=== PATIENT | female | born 1980 | race Caucasian/White ===

== ENCOUNTER → 2018-07-20 14:01 | Outpatient (CLI) | payer SELFPAY ==
[2018-07-20 15:49] LABS: Color, Urine Yellow (Yellow); Glucose, Dipstick Normal (Normal); Ketone-Dipstick 5 mg/dl (Negative); Leukocyte Esterase-Dipstick 25 /ul (Negative); Nitrite-Dipstick Negative (Negative); Occult Blood-Urine Negative /ul (Negative); Protein-Dipstick Negative (Negative); Specific Gravity, Urine 1.015 (1.002-1.030); Urine Bilirubin Dipstick Negative (Negative); Urine Clarity Clear (Clear); Urine Urobilinogen Normal (Normal); Urine pH 6.5 (5.0 - 8.0)
[2018-07-20 15:58] LABS: Absolute Lymphocyte Count 1.39 X10^3/ul (0.83-4.51); Absolute Neutrophil Count 4.1 X10^3/uL (2.0-7.7); Basophil# 0.03 X10^3/uL; Basophil% 0.5 % (0-1); Eosinophil# 0.22 X10^3/uL; Eosinophils% 3.6 % (0-5); Hematocrit 36.2 % (37-47); Hemoglobin 12.2 g/dl (12.0-15.0); Lymphocyte # 1.39 X10^3/ul (4.0); Lymphocyte % 22.9 % (19-41); Mean Corp Hgb Conc 33.7 g/gl (32-36); Mean Corpuscular Hgb 29.4 pg (27.0-32.0); Mean Corpuscular Volume 87.2 fL (81-99); Mean Platelet Vol. 10.1 fl (6.2-12.0); Monocyte# 0.36 X10^3/uL; Monocyte% 5.9 % (0-10); Neutrophil # 4.06 X10^3/uL (2.7-7.7); Neutrophil % 66.8 % (47-70); Platelet Count 202 K/mm3 (150-450); RBC Distribution Width CV 13.4 % (11.6-14.6); Red Blood Count 4.15 M/mm3 (4.2-5.4); White Blood Count 6.1 K/mm3 (4.4-11.0)
[2018-07-20 16:13] LABS: Thyroid Stim Hormone (TSH) 2.47 uIU/mL (0.358-3.74)
[2018-07-20 16:17] LABS: POSITIVE COUNT NO; POSITIVE DIFFERENTIAL NO; POSITIVE MORPHOLOGY NO
[2018-07-20 16:54] LABS: HIV - WCH Non-Reactive (Nonreactive); Rubella IgG > 500.0 IU/mL
[2018-07-20 18:58] LABS: Chlamydia Trachomatis by PCR Negative (Negative); Neisserai gonorrhoeae by PCR Negative (Negative); Probe Check PASS; Sample Adequacy Control PASS; Specimen Processing Control PASS
[2018-07-21 23:53] LABS: Prenatal RPR NONREACTIVE (NONREACTIVE)
[2018-07-22 12:49] LABS: HEPATITIS B SURFACE AG Negative (Negative); Hep C Antibodies <0.1 s/co ratio (0.0-0.9)
[2018-07-27 11:54] LABS: HPV Reflexed? NOT INDICATED
== END ==
PROVIDERS: Referring Provider Obstetrics & Gynecology; Visit Provider Obstetrics & Gynecology
DX: Z34.82 Encounter for supervision of other normal pregnancy, second trimester (principal); Z11.3 Encounter for screening for infections with a predominantly sexual mode of transmission; Z12.4 Encounter for screening for malignant neoplasm of cervix
CPT/HCPCS: 36415; 81002; 84443; 85025; 86703; 86762; 86803; 87340; 87491; 87591; 87624; 88175; G0145

== ENCOUNTER → 2019-12-06 | Outpatient (CLI) | payer OTHER, SELFPAY ==
[2019-12-06 11:37] LABS: Chlamydia Trachomatis by PCR Negative (Negative); Neisserai gonorrhoeae by PCR Negative (Negative); Probe Check PASS; Sample Adequacy Control PASS; Specimen Processing Control PASS
== END | disposition home or self-care (01) ==
LOC: LABSPEC 08:42
PROVIDERS: Referring Provider Obstetrics & Gynecology; Visit Provider Obstetrics & Gynecology
DX: Z11.3 Encounter for screening for infections with a predominantly sexual mode of transmission (principal)
CPT/HCPCS: 87491; 87591

== ENCOUNTER 2020-05-21 05:00 | Inpatient (IN) | payer SELFPAY ==
[2020-05-21] VITALS (19 sets, daily range): BP systolic 89–113; BP diastolic 44–83; PULSE 69–99; RESP 14–18; TEMP 36.4–37.3; O2SAT 96–100; BMI 30.7
[2020-05-21] MEDS: Lactated Ringers 1,000 ML 999 ML IV (05:20)
[2020-05-21 05:37] LABS: Absolute Lymphocyte Count 1.16 X10^3/uL (0.83-4.51); Absolute Neutrophil Count 5.9 X10^3/uL (2.0-7.7); Basophil# 0.02 X10^3/uL; Basophil% 0.3 % (0-1); Eosinophil# 0.09 X10^3/uL; Eosinophils% 1.2 % (0-5); Hematocrit 35.8 % (37-47); Hemoglobin 11.9 g/dL (12.0-15.0); Lymphocyte # 1.16 X10^3/ul (4.0); Lymphocyte % 14.8 % (19-41); Mean Corp Hgb Conc 33.2 g/dL (32-36); Mean Corpuscular Hgb 30.2 pg (27.0-32.0); Mean Corpuscular Volume 90.9 fL (81-99); Mean Platelet Vol. 10.4 fl (6.2-12.0); Monocyte# 0.62 X10^3/uL; Monocyte% 7.9 % (0-10); NRBC Flagged by Analyzer 0 % (0-5); Neutrophil # 5.87 X10^3/uL (2.7-7.7); Platelet Count 185 K/mm3 (150-450); RBC Distribution Width CV 13.4 % (11.6-14.6); Red Blood Count 3.94 M/mm3 (4.2-5.4); White Blood Count 7.8 K/mm3 (4.4-11.0)
[2020-05-21] MEDS: Lactated Ringers 1,000 ML 500 ML IV (06:22)
[2020-05-21] MEDS: Acetaminophen 500 MG Tablet 1000 MG PO ×4 (06:29→23:55)
--- NOTE | 2020-05-21 06:41 | PCM.HPOB.BLA ---
History and Physical Date of Admission: 05/21/20 CC: Repeat section HPI: 40 yo at 39/1w, ALEXANDRO 05/27/20 by 15w US, admitted for repeat section. Denies LOF, VB, contractions. +FM. Denies DAVILA, vision changes, chest pain, dyspnea, nausea/emesis. complicated by: advanced maternal age, history of myomectomy. PRIOR DELIVERY HISTORY DEL DATE GEST LAB WT LB WT OZ TYPE ANES LABOR TX 01 Jul 17 8 0 0 0 Sab None No Oct 16 13 0 0 0 Sab General No Jan 18 39 0 8 8 P C/S Epidural No ALLERGIES: No Known Drug Allergies MEDICATIONS: 28 mg iron-800 mcg tablet daily SOCIAL HISTORY: Smoking - Never Alcohol Use - None Illicit Drug Use - denies use of street drugs Family History: Noncontributory Medical History: none Surgical history: section, myomectomy, D&C Labs: HIV: negative Hepatitis B/C: negative/negative RPR: nonreactive Blood type: A neg Rubella immune GC/CT negative COVID negative REVIEW OF SYSTEMS: GENERAL - Denies fever, or chills SKIN - Denies rash, new skin lesions, or change in moles EYES - Denies blurred vision, or change in visual acuity EARS - Denies ear pain, or difficulty hearing NOSE - Denies nasal congestion, discharge, or bleeding MOUTH - Denies sore throat, or difficulty swallowing NECK - Denies pain or swelling RESPIRATORY - Denies shortness of breath, cough, wheezing CARDIOVASCULAR - Denies palpitations, chest pain, orthopnea, PND, peripheral edema, syncope or claudication GASTROINTESTINAL - Denies nausea, vomiting, diarrhea, constipation, Denies abdominal pain, melena and or bright red blood GENITOURINARY - Denies dysuria, frequency of urination, urgency, or hesitancy MUSCULOSKELETAL - Denies joint or muscle pain, or back pain NEUROLOGICAL - Denies localized numbness, weakness, or tingling PSYCHIATRIC - Denies depression, anxiety, substance abuse or suicide attempts ENDOCRINE - Denies heat or cold intolerance, weight loss or gain, increasing thirst HEMATO-IMMUNOLOGIC - Denies easy bruising, bleeding, oral ulcerations or recurrent infections OBJECTIVE: Vital Signs Temp Pulse Resp BP Pulse Ox 05/21/20 06:18 98.2 F 96 18 113/73 96 GENERAL: NAD HEENT: NC/AT HEART: RRR, no M/R/G LUNGS: CTAB ABDOMEN: soft, NT, gravid EXT: No edema MSK: full ROM, 5/5 muscle strength FHR: 136 [place]: quiet LABS: Laboratory Last Values WBC 7.8 K/mm3 (4.4-11.0) 05/21/20 05:20 RBC 3.94 M/mm3 (4.2-5.4) L 05/21/20 05:20 Hgb 11.9 g/dL (12.0-15.0) L 05/21/20 05:20 Hct 35.8 % (37-47) L 05/21/20 05:20 MCV 90.9 fL (81-99) 05/21/20 05:20 MCH 30.2 pg (27.0-32.0) 05/21/20 05:20 MCHC 33.2 g/dL (32-36) 05/21/20 05:20 RDW Std Deviation 44.0 fl (35.1-43.9) H 05/21/20 05:20 RDW Coeff of Rosalinda 13.4 % (11.6-14.6) 05/21/20 05:20 Plt Count 185 K/mm3 (150-450) 05/21/20 05:20 MPV 10.4 fl (6.2-12.0) 05/21/20 05:20 Immature Gran % (Auto) 0.800 % (0.0-0.9) 05/21/20 05:20 Neut % (Auto) 75.0 % (47-70) H 05/21/20 05:20 Lymph % (Auto) 14.8 % (19-41) L 05/21/20 05:20 [place] % (Auto) 7.9 % (0-10) 05/21/20 05:20 Eos % (Auto) 1.2 % (0-5) 05/21/20 05:20 Baso % (Auto) 0.3 % (0-1) 05/21/20 05:20 Absolute Neuts (auto) 5.9 X10^3/uL (2.0-7.7) 05/21/20 05:20 Absolute Lymphs (auto) 1.16 X10^3/uL (0.83-4.51) 05/21/20 05:20 Nucleated RBC % 0 % (0-5) 05/21/20 05:20 A/P: 40 yo at 39/1w, ALEXANDRO 05/27/20 by 15w US, admitted for repeat section. Complicated by: history of fibroids with myomectomy and advanced maternal age, fetus with echogenic focus on anatomy US. -Admit to L&D -Preop labs stable -2g Ancef preop
[2020-05-21] MEDS: Sodium Citrate/Citric Acid 30 ML UDC PO (06:52)
[2020-05-21] MEDS: Cefazolin 2 GM in 0.9% Normal Saline 100 ML IV (06:53)
--- NOTE | 2020-05-21 08:16 | PCM.OPRPT ---
Delivery Classification: Scheduled Final ALEXANDRO: 05/27/20 Final ALEXANDRO Source: US <20 weeks Gestational age: 39 Weeks and 1 Days Type of Anesthesia:: Spinal Date of Procedure: 05/21/20 Pre-Operative Diagnosis: Repeat section, Klein intrauterine 39/1w, History of myomectomy Post-Operative Diagnosis: Repeat section, Klein intrauterine 39/1w, History of myomectomy Indications: 40-year-old G4, P1 at 39 weeks and 1 day admitted for repeat section. Patient had history of prior section as well as myomectomy. All risks, benefits, alternatives were discussed with the patient. Risks include but are not limited to: Risk of bleeding to the point of transfusion, infection, injury to surrounding tissue including bowel or bladder requiring prolonged Min catheter use, VTE, ICU admission. Patient aware and consented. Description of Procedure: Patient was taken to the operating room and spinal anesthesia was placed. Patient was placed in the dorsal supine position with a left lateral tilt. Prepped and draped in the usual sterile fashion. Min catheter placed. Pfannenstiel skin incision made with scalpel and carried down through the underlying subcutaneous tissues. Fascia nicked on either side of the midline and extended bilaterally with Del Castillo scissors. Jared clamps were used to grasp the superior fascial edge which was tented up and underlying rectus muscles were dissected off midline using Del Castillo scissors. Jared clamps were then moved to the inferior fascial edge which was tented up and underlying rectus muscles were dissected off bluntly and at midline using Del Castillo scissors. Rectus muscle at midline and peritoneum grasped with 2 hemostats, incised with Metzenbaum scissors. Extended bluntly. Bladder blade placed. Vesicouterine peritoneum identified and the bladder flap created using Metzenbaum scissors. Lower uterine segment noted to be thin. Low transverse uterine incision with scalpel, clear fluid. Hand placed into the uterine cavity and with the assistance of gentle fundal pressure head delivered followed by body. No nuchal cord. Cord clamped and cut and baby handed to nursing. Manual extraction of the placenta. Uterus exteriorized and cleared of all clots with a dry lap. Uterine incision closed with a running locking stitch followed by a second vertical imbricating stitch. [id number] stitches placed for hemostasis. Hysterotomy noted to be hemostatic. Inspection of the uterus noted a well-healing fundal scar from prior myomectomy. Uterus replaced into the abdominal cavity. Peritoneum closed in a nonlocking fashion. Fascia closed with a running locking stitch. Subcutaneous tissue closed, followed by running subcuticular stitch. At the end the procedure all needle, lap, sponge counts were correct x3. Amniotic Fluid Description: Clear Infant Gender: Male (1 minute): 8 (5 minute): 9 Delayed cord clamping: Yes Antibiotic Given: Ancef 2 grams IV x1
--- NOTE | 2020-05-21 08:23 | DCINST_ITS ---
Discharge Diet: No Restrictions Discharge Activity: Return to Normal Activity, May not drive while taking narcotic pain medications. May resume sexual activity in: 6 weeks Call your doctor if your incision/area has: Continuous Slow Oozing, Sudden Increased Bleeding, Increased Pain/ Swelling Call your doctor if you observe: Fever of 101 or Higher, Inability to urinate, Inability to have a bowel movement, Using more than one pad per hour, Uncontrolled pain Cleanse incision/area with: Soap & Water Additional Instructions: If you experience any of the following, contact your healthcare provider. * Bleeding that soaks a pad every hour for 2 hours * Fever 100.4 or higher * Unrelieved incision or abdominal pain * Swelling, redness, discharge or bleeding from your incision or episiotomy site * Your incision begins to separate * Problems urinating (including inability to urinate or burning while urinating). * Visual changes * Severe headache * Flu-like symptoms * Pain or redness in one of both of your breasts * Pain, warmth, tenderness or swelling in your legs, especially the calf area * Frequent nausea and vomiting * Symptoms of depression or anxiety If you experience any of the following, call 911 or go to the nearest Emergency Room. * Chest pain * Problems breathing * Seizure activity * Partial or complete paralysis of a body part, slurred speech, weakness or drooping of the face, or a sudden inability to walk or hold your balance Allergies/Adverse Reactions: Allergies No Known Allergies Allergy (Verified 05/21/20 05:19) Medications to take at Discharge Tablet 1 tab PO DAILY 05/21/20 Follow-Up: Call to make an appointment with your doctor for an incision check in 1-2 weeks. You will also need a 6 week post- follow up appointment. Test results from this visit will be discussed in further detail at your follow- up appointment, if applicable. Please Follow Up With: Areli Gautam DO When: 2 weeks. If easier okay to follow up in [place]. Primary Care Physician: Care Physician,No Primary [Primary Care Provider] - Proposed Discharge Date: 05/22/20
[2020-05-21] MEDS: Oxytocin 30 units/NS 500 ml 30 UNITS/500 ML IV.SOLN 167 UNITS IV (08:35)
--- NOTE | 2020-05-21 09:06 | NURSING ---
60 cc clot passed
[2020-05-21] MEDS: Methylergonovine 0.2 MG/ML Ampul IM (09:18)
--- NOTE | 2020-05-21 09:20 | NURSING ---
130 ml clot. Methergine given. notified.
[2020-05-21] MEDS: Senna/Docusate Sodium 1 Tablet PO (11:43)
[2020-05-21] MEDS: Lactated Ringers 1,000 ML 100 ML IV (11:44)
[2020-05-21] MEDS: 0.9% Saline Lock 10 ML Syringe IV ×2 (13:50→20:04)
[2020-05-21] MEDS: Ketorolac 30 MG/ML Syringe IV ×2 (13:50→20:04)
[2020-05-22] MEDS: Ketorolac 30 MG/ML Syringe IV (02:42)
[2020-05-22] MEDS: 0.9% Saline Lock 10 ML Syringe IV (02:43)
[2020-05-22 04:07] VITALS: BP 107/63; PULSE 77; RESP 16; TEMP 36.6
[2020-05-22] MEDS: Acetaminophen 500 MG Tablet 1000 MG PO ×3 (06:30→18:20)
[2020-05-22 06:32] LABS: Hemoglobin 10.6 g/dL (12.0-15.0); Mean Corp Hgb Conc 33.1 g/dL (32-36); Mean Corpuscular Hgb 30.4 pg (27.0-32.0); Mean Corpuscular Volume 91.7 fL (81-99); Mean Platelet Vol. 9.7 fl (6.2-12.0); Platelet Count 145 K/mm3 (150-450); RBC Distribution Width CV 13.7 % (11.6-14.6); RBC Distribution Width SD 46.3 fl (35.1-43.9); Red Blood Count 3.49 M/mm3 (4.2-5.4); White Blood Count 8.5 K/mm3 (4.4-11.0)
--- NOTE | 2020-05-22 08:16 | PCM.PN.BLA ---
Progress Note POD#1 Subjective: Pain controlled. Lochia minimal. +Headache Objective: Vital Signs Temp Pulse Resp BP Pulse Ox 05/22/20 04:07 97.8 F 77 16 107/63 05/21/20 23:30 97.8 F 78 16 106/62 05/21/20 20:17 98.1 F 81 14 101/61 97 Gen: NAD CARDIORESP: no increased effort ABDOMEN: soft, mildly tender. Dressing c/d EXT: trace edema Labs: Laboratory Tests 05/22/20 05/21/20 Range/Units 06:25 10:35 WBC 8.5 (4.4-11.0) K/mm3 RBC 3.49 L (4.2-5.4) M/mm3 Hgb 10.6 L (12.0-15.0) g/dL Hct 32.0 L (37-47) % MCV 91.7 (81-99) fL MCH 30.4 (27.0-32.0) pg MCHC 33.1 (32-36) g/dL RDW Std Deviation 46.3 H (35.1-43.9) fl RDW Coeff of Rosalinda 13.7 (11.6-14.6) % Plt Count 145 L (150-450) K/mm3 MPV 9.7 (6.2-12.0) fl Screen NEGATIVE (NEGATIVE) Baby's Blood Type A POSITIVE Baby's SILVERIO NEGATIVE (NEGATIVE) A/P: 40 yo POD#1 s/p repeat section. -Breast feeding -Pain controlled -Tolerating PO -Reports headache now when she sits or stands. Just had motbreezy, will see how this works. Diet: Reg IVFs: HLIV DVT PPx: scds, ambulate, lovenox qD Dispo: Home POD1-2
[2020-05-22] MEDS: Ibuprofen 600 MG Tablet PO ×2 (08:23→14:08)
[2020-05-22 08:30] VITALS: BP 104/60; PULSE 74; RESP 16; TEMP 36.5; O2SAT 96
[2020-05-22] MEDS: Senna/Docusate Sodium 1 Tablet PO (10:17)
[2020-05-22] MEDS: Enoxaparin 40 MG/0.4 ML Syringe SC (10:17)
[2020-05-22 13:26] VITALS: BP 105/58; PULSE 78; RESP 16; TEMP 36.3; O2SAT 96
[2020-05-22] MEDS: Caffeine 200 MG Tablet 400 MG PO (13:29)
[2020-05-22 17:00] VITALS: BP 103/63; PULSE 78; RESP 16; TEMP 36.4; O2SAT 97
== END 2020-05-22 18:45 | disposition home or self-care (01) | DRG 788 ==
PROVIDERS: Admitting Provider Student in an Organized Health Care Education/Training Program; Referring Provider Obstetrics & Gynecology; Visit Provider Obstetrics & Gynecology
PROC: 10D00Z1 Extraction of Products of Conception, Low, Open Approach (ICD-10-PCS; CPT 59514; principal; 2020-05-21 07:15)
DX: O34.219 Maternal care for unspecified type scar from previous cesarean delivery (principal); Z3A.39 39 weeks gestation of pregnancy; Z37.0 Single live birth
CPT/HCPCS: 85025; 85027; 85461; 86850; 86900; 86901; 90384; 99218; 99251; J7120; A4216; G0378; G0463; J2405; J2790

== ENCOUNTER → 2020-07-02 | Outpatient (CLI) | payer OTHER, SELFPAY ==
[2020-05-21 05:18] VITALS: BMI 30.7
[2020-07-05 16:31] LABS: HPV Reflexed? NOT INDICATED
== END | disposition home or self-care (01) ==
LOC: LABSPEC 07-03 08:43
PROVIDERS: Visit Provider Obstetrics & Gynecology
DX: Z12.4 Encounter for screening for malignant neoplasm of cervix (principal)
CPT/HCPCS: 88175; G0145

== ENCOUNTER → 2023-02-05 | Outpatient (CLI) | payer OTHER, SELFPAY ==
[2023-02-05 11:10] LABS: Absolute Lymphocyte Count 1.58 X10^3/uL (0.83-4.51); Absolute Neutrophil Count 4.5 X10^3/uL (2.0-7.7); Basophil# 0.04 X10^3/uL; Basophil% 0.6 % (0-1); Eosinophil# 0.19 X10^3/uL; Eosinophils% 2.8 % (0-5); Hematocrit 35.7 % (37-47); Lymphocyte # 1.58 X10^3/ul (0.83-4.51); Lymphocyte % 23.3 % (19-41); Mean Corp Hgb Conc 33.6 g/dL (32-36); Mean Corpuscular Hgb 29.7 pg (27.0-32.0); Mean Corpuscular Volume 88.4 fL (81-99); Mean Platelet Vol. 10.2 fl (6.2-12.0); Monocyte# 0.46 X10^3/uL; Monocyte% 6.8 % (0-10); NRBC Flagged by Analyzer 0 % (0-5); Neutrophil # 4.47 X10^3/uL (2.7-7.7); Neutrophil % 65.9 % (47-70); Platelet Count 218 K/mm3 (150-450); RBC Distribution Width CV 13.3 % (11.6-14.6); RBC Distribution Width SD 43.7 fl (35.1-43.9); Red Blood Count 4.04 M/mm3 (4.2-5.4); White Blood Count 6.8 K/mm3 (4.4-11.0)
[2023-02-05 12:04] LABS: HIV - WCH Non-Reactive (Nonreactive); Hepatitis B Surface Antigen Non-Reactive (Nonreactive); Hepatitis C Antibody Non-Reactive (Nonreactive); Rubella IgG Reactive (Nonreactive); Syphilis Antibodies Non-reactive
[2023-02-06 05:07] LABS: V-Zoster IgG (Immunity) 2016 index (Immune >165)
[2023-02-09 12:09] LABS: HPV APTIMA, High Risk Negative (Negative)
== END | disposition home or self-care (01) ==
LOC: WOBLAB 10:38
PROVIDERS: Visit Provider Obstetrics & Gynecology
DX: Z12.4 Encounter for screening for malignant neoplasm of cervix (principal); N91.2 Amenorrhea, unspecified
CPT/HCPCS: 36415; 85025; 86703; 86762; 86780; 86787; 86803; 87086; 87340; 87624; 88175; G0145